=== PATIENT | female | born 1950 | race Caucasian/White ===

== ENCOUNTER 2022-03-11 18:15 | Outpatient (REF) | payer MEDICARE, SELFPAY ==
[2022-03-11 21:34] LABS: Abs Immature Grans 0.02 10^3/uL (0.0-0.06); Absolute Basophil Count 0.07 10^3/uL (0.0-0.2); Absolute Eosinophil Count 0.18 10^3/uL (0.0-0.7); Absolute Lymphocyte Count 1.46 10^3/uL (1.2-3.4); Absolute Monocyte Count 1.03 10^3/uL (0.1-0.8); Absolute Neutrophil Count 5.63 10^3/uL (1.2-6.7); Basophils % 0.8; Eosinophils % 2.1; HGB 13.1 g/dL (11.2-15.7); Immature Grans % 0.2; Lymphocytes % 17.4; MCHC 34.5 % (32.0-36.0); MCV 90 fL (80-95); MPV 11.9 fL (8.0-11.0); Monocytes % 12.3; Neutrophils % 67.2; Platelet Count 302 10^3/uL (130-400); RBC 4.23 10^6/uL (3.93-5.22); RDW 13.6 % (11.7-14.6); RDW-SD 44.5 fL; WBC 8.39 10^3/uL (4.4-10.8)
[2022-03-11 22:01] LABS: BUN 23 mg/dL (7-18); CREATININE 1.1 mg/dL (0.55-1.02); Calcium 8.9 mg/dL (8.5-10.1); Chloride 105 mmol/L (98-107); Glucose 100 mg/dL (74-106); Potassium 4.1 mmol/L (3.5-5.1); Sodium 141 mmol/L (136-145)
== END 2022-03-11 18:16 | disposition home or self-care (01) ==
LOC: LBN 18:15
PROVIDERS: Visit Provider Physician Assistant Medical
DX: M79.605 Pain in left leg (principal)
CPT/HCPCS: 80048; 85025

== ENCOUNTER → 2022-03-13 00:35 | Outpatient (CLI) | payer MEDICARE, SELFPAY ==
--- NOTE | 2022-03-13 | DI.US_ITS ---
Exam(s) US LOWER EXTREMITY VENOUS LT EXAM: US LOWER EXTREMITY VENOUS LT CLINICAL HISTORY: LEFT LEG PAIN M79.605 > BAKERS CYST OR DVT TECHNIQUE: Grayscale, color, and doppler imaging of the deep venous system of the left lower extremi ty was performed. COMPARISON: No exams were available for comparison FINDINGS: There is no evidence of intraluminal thrombus and there is normal compression and augmentation demons trated within the common femoral vein, femoral vein, and popliteal vein. In the ipsilateral calf the interrogated veins also exhibit normal compression/ augmentation properti es. The ipsilateral saphenofemoral junction is patent. Incidentally noted is a Rose cyst in the popliteal fossa measuring 6 cm length. IMPRESSION: 1. No evidence of DVT in the left lower extremity. Rose cyst incidentally noted. DATA REPOSITORY:
== END ==
PROVIDERS: Visit Provider Physician Assistant Medical
DX: M79.605 Pain in left leg (principal)
CPT/HCPCS: 93971